=== PATIENT | female | born 1985 | race Caucasian/White ===

== ENCOUNTER → 2020-10-14 | Outpatient (CLI) | payer OTHER ==
[~2020-10-14] MED LIST: FAMOTIDINE 40 M40 M1 PO; FLONASE 0.05%50 MCG NASAL; METAMUCIL0.4 GM PO; PROTONIX40 M2 PO
== END ==
LOC: LAB 08:35
PROVIDERS: ATTEND Surgery
DX: Z01.812 Encounter for preprocedural laboratory examination (principal); Z20.822 Contact with and (suspected) exposure to COVID-19

== ENCOUNTER 2020-10-18 06:06 | Observation (INO) | payer OTHER ==
[~2020-10-18] VITALS: Ht 157.5 cm; Wt 84.5 kg
--- NOTE | ~2020-10-18 | O ---
[facility] [place] [address] OPERATIVE REPORT Name: TANIA CRAIG Room #: 449-I [facility] Shanika Nunn#: [id number] Admission: 10/18/20 Attend Phys: Artie Smith MD Discharge: 10/19/20 Date of : 81 Report #: [id number] THIS REPORT FOR: cc: Yves Robles MD, Andrew J MD Joseph, Sigi P. MD ~ DATE OF SERVICE: 10/18/2020 PREOPERATIVE DIAGNOSES: Refractory reflux, hiatal hernia. POSTOPERATIVE DIAGNOSES: Refractory reflux, hiatal hernia. OPERATIVE PROCEDURE DONE: 1. Laparoscopic placement of magnetic sphincter augmentation device - LINX placement. 2. Repair of hiatal hernia. OPERATING SURGEON: Dr. Artie Smith. PLIER WORKER: Tennille MS3. INDICATIONS FOR THE PROCEDURE: The patient is a 35-year-old female who presented with complaints of refractory reflux and regurgitation, stage 5. The patient has frequent regurgitations throughout the day especially when she bends down and lying down. The patient has a history of Epperson's esophagus, small hiatal hernia. The patient had a Lang study that was done that showed a DeMeester score of 270 and manometry was normal. The patient was advised a laparoscopic placement of a sphincter augmentation device. The patient showed understanding and agreed to proceed. DESCRIPTION OF PROCEDURE: After explaining to the patient in detail and informed consent was obtained, the patient was identified in the preoperative holding area. The patient was transferred to the operating room and was placed in supine position. Subsequent sterile compressive devices were placed for DVT prophylaxis. Preoperative antibiotics were given. After induction of anesthesia, the abdomen was prepped and draped in a sterile fashion. Through a left upper quadrant 1 cm incision and using Optiview technique, peritoneal cavity was entered and pneumoperitoneum was created. Thereafter, under direct vision, another 5 mm trocar was placed in the left mid abdomen, another 12 mm trocar was placed in the right mid abdomen, another 5 mm trocar was placed in the right subcostal region and through a 1 cm incision in the epigastrium, a Kathryn retractor was introduced and the left lobe of the liver was retracted. Upon initial inspection, the patient was noted to have a small hiatal hernia. Using pars flaccida to about 3-4 cm size hiatal hernia. Using pars flaccida technique, the right devin was identified. The sac was gently dissected off the [address] [address] OPERATIVE REPORT Name: TANIA CRAIG Room #: 449-I [facility] Shanika Nunn#: [id number] Admission: 10/18/20 Attend Phys: Artie Smith MD Discharge: 10/19/20 Date of : 81 Report #: [id number] right devin using initially with hook electrocautery and then with EnSeal. I continued dissection anteriorly. The phrenoesophageal membrane was divided anteriorly and continued to dissect along the left devin. The gastrophrenic ligament was divided and the angle of His was mobilized and then performed a posterior dissection using EnSeal. I mobilized the distal esophagus as much as possible. Prior to this, I had placed a [place] drain and used it as a sling in the distal esophagus near the GE junction. I continued to mobilize the distal esophagus as much as possible to have at least 3-4 cm of esophagus within the abdomen. Once this was performed, I then performed a posterior cruroplasty with a [id number] Ethibond suture. I then placed an additional kjdflp-ch-[id number] Ethibond suture posteriorly. There was a small bleeder at the crura, which I included within the suture and ligated it after which hemostasis was achieved. Care was also taken not to tighten the crura too much. Once this was completed, I then identified the posterior vagus. I and the [place] drain was placed through this window. Using a LINX sizer device, I then sized the esophagus for a 16 cm device. The LINX was then inserted within the abdomen and was then latched appropriately. Care was taken not to have any tightening or restriction with the device. Prior to this, I also had removed a small area of anterior sac and fat pad using the EnSeal. Again, there was a small bleeder, which had to be coagulated using the EnSeal device anteriorly. Absolute hemostasis was ensured. The abdomen was then deflated. The 12 mm port site incision was closed with 0 Vicryl for the facial skin was closed with 4-0 Monocryl for all the incisions. Dermabond was applied. The patient was stable at the end of the procedure. The patient was awoken from anesthesia and was transferred to the recovery room in stable condition. ESTIMATED BLOOD LOSS: Approximately 50 mL. CONDITION OF THE PATIENT: Stable. FLUIDS GIVEN: Per anesthesia notes. SPECIMEN SENT: None. COMPLICATIONS: None. ANESTHESIA: General anesthesia. By: [id number] Artie Smith MD /dayana
[2020-10-18 07:15] VITALS: BP 129/84
[2020-10-18 14:59] VITALS: BP 110/72
[2020-10-18 20:15] VITALS: BP 121/86
--- NOTE | 2020-10-18 20:27 | NUR ---
Assumed care of pt ar 1435 this afternoon from surgery. Pt is a&o X4 abd c/o pain in the shoulder and abd. Pt has surgical incision x4 on abd sealed with dermaseal. skin, w/d/p, intact with no tenting. CR< 3sec X4, Eyes PERRLA, Lungs clear in all lobes. Pain at a 3 on 1/10 scale. Assessment otherwise unremarkable. I.V.Lft hand. Call light and needs within reach.
--- NOTE | 2020-10-18 20:30 | NUR ---
Received pt from post op. VS stable, oders carried out. lap sites, C/d/i. Pain is managed with medication, partial relief is noted. at the bed side, admission done by BAG MACHINE ADJUSTER. POC followed, endorsed to the night nurse.
--- NOTE | 2020-10-19 07:26 | NUR ---
VSS-AFEBRILE. FIREWOOD CUTTER DECLINED TO MOVE PATIENT TO ANOTHER ROOM, BATHROOM SINK IS BROKEN. NAIL POLISH BRUSH MACHINE FEEDER STATED THAT PATIENT CAN USE SECOND SINK JUST OUTSIDE ROOM. PAIN WELL CONTROLLED WITH IV FENTANYL. OOB AD GEETHA-STEADY ON FEET. VOIDING WITHOUT DIFFICULTY. ABDOMINAL LAP SITES INTACT, AND HAVE NO DRAINAGE.
[2020-10-19 07:58] VITALS: BP 1123/82
--- NOTE | 2020-10-19 09:42 | NUR ---
ASSUMED CARE OF PT AT 0700 THIS MORNING. PT IS GETTING DISCHARGED THIS MORNING. PT IS A&OX4, EYES PERRLA, LUNGS CLEAR ALL MORIN, ABD TENDER DUE TO INCISIONS. INCISIONS DRY AND CLEAN, SLIGHT REDNESS AND ARE DERMASEALED X4, CR< 3SEC, SKIN NON TENTING, ASSESSMENT OTHERWISE UNREMARKABLE. IV IN LFT HAND, DC AT 1000HRS. CALL LIGHT AND BELONGINGS WITHIN REACH.
[2020-10-19 09:52] VITALS: BP 1123/82
== END 2020-10-19 11:00 | disposition home or self-care (01) ==
LOC: OR → TBA 06:06 → OR 08:35 → 4W 14:39 → OR 14:57 → 4W 10-19 11:00
PROVIDERS: ADMIT Surgery; ATTEND Surgery
DX: K44.9 Diaphragmatic hernia without obstruction or gangrene (principal); K21.9 Gastro-esophageal reflux disease without esophagitis; K22.70 Barrett's esophagus without dysplasia; F17.210 Nicotine dependence, cigarettes, uncomplicated; Z79.899 Other long term (current) drug therapy
CPT/HCPCS: 50010; 50101; 50411; 50555; 50558; 51489; 52265; 52266; 53307; 54022; 54118; 55326; 56462; 56525; 56526; 56531; 58104; 58574; 62110; 62900; 70005